=== PATIENT | female | born 1995 | race Caucasian/White ===

== ENCOUNTER 2024-01-12 17:46 | Emergency (ER) | payer OTHER, SELFPAY ==
--- NOTE | ~2024-01-12 | CT_ITS ---
CT brain wo con Ordering provider: Verena Pereyra PA-C History: 28 years Female with . HI x2, HAs, photophobia . Comparison: None. Technique: CT of the head without contrast. Coronal FINDINGS: BRAIN PARENCHYMA AND CSF SPACES: No midline shift, mass effect or hemorrhage. The brain parenchyma a nd CSF spaces are otherwise normal. VISUALIZED PARANASAL SINUSES: Bilateral maxillary, and ethmoid and sinus disease. Left frontal sinus disease. MASTOIDS: Well aerated. BONES: The bones appear intact. SOFT TISSUES: Visualized nasopharynx is normal. Superficial soft tissues are normal. IMPRESSION: No acute intracranial findings. Reviewed, dictated and finalized at location A. L MANAGER
--- NOTE | ~2024-01-12 | CT_ITS ---
CT cervical spine wo con Ordering provider: Verena Pereyra PA-C History: . HI x2 , neck pain . Comparison: None. Technique: CT of the cervical spine was performed without contrast. Sagittal and coronal reformatted images were also obtained and reviewed. Automated exposure control and iterative reconstruction dominik hnique were employed. The dose-length product was 384.70 mGy-cm. FINDINGS: VERTEBRAE: No subluxation or acute fracture. The occipital condyles are intact. DISC SPACES: Normal. PARASPINOUS SOFT TISSUES: Normal. IMPRESSION: No acute osseous abnormality cervical spine. Reviewed, dictated and finalized at location A. EL MAKER
[2024-01-12 17:57] VITALS: BP 143/87; PULSE 70; RESP 18; TEMP 36.3; O2SAT 98
--- NOTE | 2024-01-12 18:01 | ED_ITS ---
HPI - Head Injury General Chief complaint: Head Injury <Verena Pereyra PA-C - Last Filed: 01/12/24 18:12> Stated complaint: hit head 2x, thinks she has concussion <Verena Pereyra PA-C - Last Filed: 01/12/24 18:12> Time Seen by Provider: 01/12/24 18:01 <Verena Pereyra PA-C - Last Filed: 01/12/24 18:12> Focused HPI: Patient is a 28 y/o female who presents to the ED with c/o HI. Patient reports she hit her frontal head on a metal crate on Monday. No LOC. She then hit her posterior head again yesterday on a door at her house. She began having persistent HAs today. Tried taking Tylenol this afternoon and took a nap w/o improvement. Has hx of occasional headaches, but denies hx of migraines. Also reports photophobia, mild L sided neck pain, nausea, 1 episode of emesis about an hour ago. Denies dizziness, lightheadedness, vision change, numbness/weakness. GENERAL: Well-appearing, obese with BMI of 32.0, and in no acute distress. HEAD: Normocephalic, atraumatic. NECK: No midline cervical spinal tenderness. Mild TTP in L paraspinal musculature. CHEST: Clear to auscultation. ?No respiratory distress. HEART: Regular rate and rhythm.? NEURO: ?Alert and oriented x3. No focal deficits. Patient screened in triage and initial orders placed.? ?Additional care and disposition to be based upon?diagnostic testing and treatment. <Verena Pereyra PA-C - Last Filed: 01/12/24 18:12> Source: patient <Verena Pereyra PA-C - Last Filed: 01/12/24 18:12> Mode of arrival: ambulatory <Verena Pereyra PA-C - Last Filed: 01/12/24 18:12> Limitations: no limitations <SHANTEL Spencer Last Filed: 01/12/24 18:12> History of Present Illness HPI Narrative: Agree with above <Lisa Garcia MD - Last Filed: 01/20/24 10:59> Related Data Allergies/Adverse reactions: Allergies Allergy/AdvReac Type Severity Reaction Status Date / Time gadobenic acid (From Allergy Anaphylaxis Verified 01/12/24 17:47 contrast - MRI) iodine Allergy Anaphylaxis Verified 01/12/24 17:47 iohexol (From contrast - CT, Allergy Anaphylaxis Verified 01/12/24 17:47 X-RAY) shellfish derived Allergy Itching Verified 01/12/24 17:47 <Verena Pereyra PA-C - Last Filed: 01/12/24 18:12> Review of Systems Review of Systems: All systems reviewed & are unremarkable except as noted in HPI and below <Lisa Garcia MD - Last Filed: 01/20/24 10:59> Exam Narrative: GENERAL: Well-appearing, in no acute distress, pleasant cooperative HEAD: Normocephalic, atraumatic. EYES: PERRLA and EOMI. ENT: grossly unremarkable NECK: Supple. CHEST: No respiratory distress. HEART: Regular rate and rhythm EXTREMITIES: Normal range of motion SKIN: Warm, dry, no rash. NEURO: No focal deficits. Alert and oriented x3. PSYCH: Normal mood and affect. <Lisa Garcia MD - Last Filed: 01/20/24 10:59> Course Vital Signs Vital signs: Vital Signs Temperature 97.4 F L 01/12/24 17:57 Pulse Rate 70 01/12/24 17:57 Respiratory Rate 18 01/12/24 17:57 Blood Pressure 143/87 H 01/12/24 17:57 Pulse Oximetry 98 01/12/24 17:57 Oxygen Delivery Room Air 01/12/24 17:57 Temperature 97.4 F L 01/12/24 17:57 Pulse Rate 70 01/12/24 17:57 Respiratory Rate 18 01/12/24 17:57 Blood Pressure 143/87 H 01/12/24 17:57 Pulse Oximetry 98 01/12/24 17:57 Oxygen Delivery Room Air 01/12/24 17:57 <Verena Pereyra PA-C - Last Filed: 01/12/24 18:12> Vital Signs Temperature 97.4 F L 01/12/24 17:57 Pulse Rate 70 01/12/24 17:57 Respiratory Rate 18 01/12/24 17:57 Blood Pressure 143/87 H 01/12/24 17:57 Pulse Oximetry 98 01/12/24 17:57 Oxygen Delivery Room Air 01/12/24 17:57 Temperature 97.4 F L 01/12/24 17:57 Pulse Rate 70 01/12/24 17:57 Respiratory Rate 18 01/12/24 17:57 Blood Pressure 143/87 H 01/12/24 17:57 Pulse Oximetry 98 01/12/24 17:57 Oxygen Delivery Room Air 01/12/24 17:57 <Lisa Garcia MD - Last Filed: 01/20/24 10:59> MDM - Head Injury MDM Narrative Medical decision making narrative: MSE by SANTANA in triage. <SPENCER Spencer-Garth - Last Filed: 01/12/24 18:12> MSE by SANTANA in triage. 28-year-old female presenting with a headache and vomiting in the setting of multiple head injuries this week. Vitals stable. Exam remarkable for the above. CT brain and C-spine show no acute abnormalities. A migraine cocktail was ordered from triage but unfortunately the patient was never able to receive it. By the time I evaluated her she states that she is feeling better. She declines any pain medications at this time. We did discuss appropriate supportive care and concussion precautions. Recommend PCP follow-up. Appropriate return precautions given. Patient is agreeable this plan. Discharged in stable condition. <Lisa Garcia MD - Last Filed: 01/20/24 10:59> Differential Diagnosis Differential diagnosis: Likely concussion without loss of consciousness, closed head injury and postconcussion syndrome <Lisa Garcia MD - Last Filed: 01/20/24 10:59> Medical Records Attestation: I reviewed the patient's medical records. <Lisa Garcia MD - Last Filed: 01/20/24 10:59> Imaging Data Radiologist's impression: ITS Impressions Head CT 01/12/24 18:36 IMPRESSION: No acute intracranial findings. Cervical Spine CT 01/12/24 18:45 IMPRESSION: No acute osseous abnormality cervical spine. <Lisa Garcia MD - Last Filed: 01/20/24 10:59> Critical Care Time Critical Care Time Critical Care Time: No <Lisa Garcia MD - Last Filed: 01/20/24 10:59> Discharge Plan Discharge Clinical Impression: Closed head injury, Headache <Verena Pereyra PA-C - Last Filed: 01/12/24 18:12> Patient Disposition: Home, Self-Care <Verena Pereyra PA-C - Last Filed: 01/12/24 18:12> Condition: Stable <Verena Pereyra PA-C - Last Filed: 01/12/24 18:12> Instructions: Antibiotic Form, Concussion (ED), Head Injury (ED) <Verena Pereyra PA-C - Last Filed: 01/12/24 18:12> Additional Instructions: the CT scans today show no acute abnormalities. There is no bleeding inside of your brain. Please use Tylenol and ibuprofen or naproxen for pain control. Drink plenty of fluids to stay hydrated. Follow-up closely with your PCP. Try to rest and avoid excessive screen time. Avoid any activities that put you at risk for another brain injury. If your symptoms worsen or other concerning symptoms arise, please return to the ER. <Verena Pereyra PA-C - Last Filed: 01/12/24 18:12> Patient Language: Slovenian <Verena Pereyra PA-C - Last Filed: 01/12/24 18:12> Follow-up/Referrals: UNKNOWN,DOCTOR [Primary Care Provider] - <Verena Pereyra PA-C - Last Filed: 01/12/24 18:12> Stand Alone Forms: Work/School Release IP <SHANTEL Spencer Last Filed: 01/12/24 18:12>
== END 2024-01-12 21:51 | disposition home or self-care (01) ==
PROVIDERS: Emergency Provider Emergency Medicine
DX: S09.90XA Unspecified injury of head, initial encounter (principal); R51.9 Headache, unspecified
CPT/HCPCS: 70450; 72125; 99284